=== PATIENT | female | born 1985 | race Caucasian/White ===

== ENCOUNTER 2021-11-05 09:45 | Emergency (ER) | payer MEDICAID ==
[~2021-11-05] VITALS: Ht 162.6 cm; Wt 75.7 kg
[2021-11-05 09:56] VITALS: BP 121/68
[2021-11-05] MEDS ORDERED: HYDR-4209 PO (12:52)
[2021-11-05] MEDS ORDERED: CYCL5TAB PO (12:52)
--- NOTE | 2021-11-05 12:58 | NUR ---
Patient discharged to home in stable condition. Written and verbal after care instructions given. Patient verbalizes understanding of instruction.
== END 2021-11-05 12:58 | disposition home or self-care (01) ==
LOC: ER 09:50
DX: M79.605 Pain in left leg (principal); Z60.2 Problems related to living alone; Z79.899 Other long term (current) drug therapy
CPT/HCPCS: 84703-TC; 93971-TC

== ENCOUNTER 2021-12-25 14:18 | Emergency (ER) | payer MEDICAID ==
[~2021-12-25] VITALS: Ht 152.4 cm; Wt 75.3 kg
[~2021-12-25 14:18] MED LIST: CYCL5TAB PO; HYDR-4209 PO
--- NOTE | 2021-12-25 14:40 | NUR ---
BIBS FOR C/O ABDOMINAL CRAMPING 10/17 AND VAGINAL SPOTTING (BRIGHT RED) SINCE TODAY. 7 WEEKS . HAS NOT SEEN OBGYN YET. DENIES N/V. WILL CONTINUE TO MONITOR THE PATIENT.
[2021-12-25 15:46] LABS: BILIRUBIN,URINE NEGATIVE (NEGATIVE); COLOR,URINE YELLOW (YELLOW); LEUKOCYTE ESTERASE ,URINE NEGATIVE (NEGATIVE); NITRITE, URINE NEGATIVE (NEGATIVE); PH,URINE 6.5 (5.0-8.0); PROTEIN,URINE NEGATIVE (NEGATIVE); UGLUCOSE NEGATIVE (NEGATIVE); UROBILINOGEN,URINE 0.2 EU/dL (0.2)
[2021-12-25 15:57] LABS: WBC,URINE 0-2 /HPF (0-3)
[2021-12-25 15:58] LABS: BACTERIA,URINE 3+ /HPF (None Seen); SQUAMOUS EPITHELIAL CELL,UR Moderate /HPF (None Seen)
--- NOTE | 2021-12-25 16:20 | NUR ---
US TECH AT THE BEDSIDE
[2021-12-25 16:32] LABS: CALCIUM, SERUM 9.1 mg/dL (8.5-10.1); CREATININE 0.4 mg/dL (0.6-1.3)
[2021-12-25 17:06] LABS: ALBUMIN 3.9 g/dL (3.4-5.0); BILIRUBIN,DIRECT 0.1 mg/dL (0.0-0.2); BILIRUBIN,TOTAL 0.4 mg/dL (0.2-1.0); TOTAL PROTEIN, SERUM 7.6 g/dL (6.4-8.2)
--- NOTE | 2021-12-25 17:08 | NUR ---
THE PATIENT IS NOT A CANDIDATE FOR RHOGAM PER LAB. DR WEBER AWARE.
[2021-12-25 17:24] VITALS: BP 112/59
--- NOTE | 2021-12-25 17:31 | NUR ---
Patient does not wish to proceed with medical care recommended by Dr. Andrews. Patient given information related to possible complications, up to and including , which could occur as a result of leaving the hospital at this time. Patient verbalizes understanding of risks involved due to leaving against medical advice. Patient has signed AMA form.
[2021-12-25 22:29] LABS: BASOPHILS # (AUTO) 0.1 K/uL (0.0-0.2); BASOPHILS % (AUTO) 0.9 % (0.0-2.0); EOSINOPHILS % (AUTO) 0.9 % (0.0-6.0); HEMATOCRIT 42 % (33-45); HEMOGLOBIN 13.6 g/dL (11.5-14.8); LYMPHOCYTES # (AUTO) 3.5 K/uL (0.8-4.8); LYMPHOCYTES % (AUTO) 30.5 % (20.0-44.0); MEAN CORPUSCULAR HGB CONC 33 g/dl (31.0-36.0); MEAN CORPUSCULAR VOLUME 93 fL (82-100); MONOCYTES # (AUTO) 0.8 K/uL (0.1-1.30); MONOCYTES % (AUTO) 6.9 % (2.0-12.0); NEUTROPHILS # (AUTO) 6.9 K/uL (1.8-8.9); NEUTROPHILS % (AUTO) 60.8 % (43.0-81.0); PLATELET COUNT (AUTO) 336 K/uL (150-450); RED BLOOD CELL COUNT(AUTO) 4.51 MIL/uL (4.0-5.2); WHITE BLOOD COUNT (AUTO) 11.4 K/uL (4.3-11.0)
== END 2021-12-25 17:15 | disposition left against medical advice (07) ==
LOC: ER 14:18
DX: O26.891 Other specified pregnancy related conditions, first trimester (principal); N93.0 Postcoital and contact bleeding; Z3A.01 Less than 8 weeks gestation of pregnancy; Z60.2 Problems related to living alone; Z79.899 Other long term (current) drug therapy
CPT/HCPCS: 36415; 76805-TC; 80048-TC; 80076-TC; 81001; 84702-TC; 85025-TC; 87086-TC